=== PATIENT | male | born 1980 | race Caucasian/White ===

== ENCOUNTER 2022-03-03 18:48 | Emergency (ER) | payer OTHER, SELFPAY ==
--- NOTE | 2022-03-03 18:54 | ED.WOUNDLAC ---
HPI - Wound/Laceration General Chief Complaint: Wound/Laceration Stated Complaint: nail infected on finger Time Seen by Provider: 03/03/22 19:01 Source: patient and RN notes reviewed Mode of arrival: ambulatory Limitations: no limitations History of Present Illness HPI narrative: 41-year-old male presents with concern for infected finger. Reports the second digit of his left hand near the nailbed is red, swollen, tender. He reports he noticed symptoms starting 1 week ago but worsened today. He denies fever, body aches, chills, sweats. Denies drainage from the area. Related Data Allergies Allergy/AdvReac Type Severity Reaction Status Date / Time No Known Allergies Allergy Verified 03/03/22 19:03 Review of Systems Review of Systems: CONSTITUTIONAL: Denies malaise, chills, sweats, or fever. SKIN: Reports redness, swelling, tenderness near the nailbed of the second digit of the left hand MUSCULOSKELETAL: Denies muscle skeletal pain NEUROLOGIC: Denies numbness, weakness All systems reviewed & are unremarkable except as noted in HPI and below PMFSH Past Medical History Medical History (Updated 03/03/22 @ 19:10 by Amalia Patel NP) Hip pain Family History Family History (Updated 07/10/20 @ 15:39 by Toma Giordano CMA) Father Diabetes mellitus Other Pancreatic cancer Social History Social History (Updated 07/10/20 @ 15:39 by Toma Giordano CMA) Smoking status: Former smoker Smoking end date: 11/21/15 Alcohol intake: current Alcohol use details: occasional Comments At time of signature, agree with nursing past medical, surgical, social and family history. There is no relevant family history pertinent to the presenting complaint Exam Narrative: GENERAL: Well-appearing, well-nourished, and in no acute distress. HEAD: Normocephalic EYES: PERRLA, conjunctivae clear ENT: Mucous membranes moist. NECK: Supple. No lymphadenopathy CHEST: Clear to auscultation. No respiratory distress. HEART: Regular rate and rhythm. SKIN: Warm, dry. Erythema, mild edema with small amount of fluctuation noted to the lateral edge of the nailbed of the second digit of the left hand consistent with paronychia NEURO: Alert and oriented x3. PSYCH: Normal mood and affect Course Course Emergency Course: Patient is aware of diagnosis, understands and agrees to treatment plan. Anticipatory guidance given. Patient agrees to follow-up as directed and is aware of reasons to seek care at the emergency department. Portions of this record may have been created with voice recognition software Level of Care: Express Care Visit Vital Signs Vital signs: Reviewed. Procedures Abscess I/D hand: Date of Incision: 03/03/22 Side (if applicable): left Local Anesthetic: none (ice) Technique: needle aspiration Amount of fluid expressed (mL): 1 Irrigation: No Packing used?: none I&D Results: Pus MDM - Wound/Laceration MDM Narrative Medical decision making narrative: Exam findings show no acute concerns or changes; patient is non-toxic appearing and is in no distress. Patient is appropriate for outpatient treatment and follow-up. Differential Diagnosis Differential diagnosis: Likely laceration, abrasion and avulsion of skin Critical Care Time Critical Care Time Critical Care Time: No Discharge Plan Discharge Clinical Impression: Paronychia of finger Qualifiers: Laterality: left Qualified Code(s): L03.012 - Cellulitis of left finger Patient Disposition: Home, Self-Care Condition: Stable Instructions: Antibiotic Form, Paronychia (ED) Additional Instructions: Soak your nail: Soak your nail in a mixture of equal parts vinegar and water 3 or 4 times each day. This will help decrease inflammation. Apply a warm compress: Soak a washcloth in warm water and place it on your nail. This will help decrease inflammation. Elevate: Raise your nail above the level of your heart
[2022-03-03 18:55] VITALS: BP 133/81; PULSE 85; RESP 14; TEMP 37.3; O2SAT 99
[2022-03-03 19:04] VITALS: BP 133/81; PULSE 85; RESP 14; TEMP 37.3; O2SAT 99
== END 2022-03-03 19:12 | disposition home or self-care (01) ==
PROVIDERS: Emergency Provider Nurse Practitioner; PCP Internal Medicine
DX: L03.012 Cellulitis of left finger (principal); Z87.891 Personal history of nicotine dependence
CPT/HCPCS: 10160; 99213; G0463

== ENCOUNTER 2022-06-12 12:49 | Emergency (ER) | payer OTHER, SELFPAY ==
[2022-06-12 12:54] VITALS: BP 150/96; PULSE 100; RESP 20; TEMP 36.7; O2SAT 99
--- NOTE | 2022-06-12 13:08 | ED.GENADULT ---
HPI - General Adult General Chief complaint: Extremity Injury, Lower Stated complaint: right foot injury Source: patient Mode of arrival: ambulatory Limitations: no limitations History of Present Illness HPI narrative: Patient presents for evaluation of pain in the right Achilles tendon for the last 5 days. He indicates he was on a trip at the [employer] and went running to catch up to the group he was with. He noted pain in Achilles which has been constant since that time. He rates pain 2/10 and described as a dull ache movement makes his symptoms worse. He tried taking 400 mg of ibuprofen with some improvement in his symptoms or after. No pain in the calf. No personal or family history of DVT. No prolonged periods of rest. He purchased a velcro ankle splint. Related Data Allergies Allergy/AdvReac Type Severity Reaction Status Date / Time No Known Allergies Allergy Verified 03/03/22 19:03 Review of Systems Review of Systems: CONSTITUTIONAL: Denies fever, chills, or sweats. EYES: Denies visual changes, redness, or discharge. ENT: Denies rhinorrhea, congestion, sore throat, or otalgia. CARDIOVASCULAR: Denies chest pain, palpitations, or edema. RESPIRATORY: Denies cough or dyspnea. GASTROINTESTINAL: Denies abdominal pain, nausea, vomiting, or diarrhea. GENITOURINARY: Denies dysuria or hematuria. SKIN: Denies rash or itching. MUSCULOSKELETAL: Reports pain in the right Achilles tendon. Denies joint pain. Denies calf pain. NEUROLOGIC: Denies headache, numbness, dizziness, or weakness. PSYCHIATRIC: Denies anxiety or depression. [facility] Past Medical History Medical History Hip pain Surgical History Surgical History No pertinent past surgical history Family History Family History Father Diabetes mellitus Other Pancreatic cancer Social History Social History Smoking status: Former smoker Smoking end date: 11/21/15 Alcohol intake: current Alcohol use details: occasional Gender identity (if verbalized by the patient): Male Sexual Orientation (if Verbalized by the Patient): Straight or Heterosexual Spiritual care concerns: No Exam Narrative: GENERAL: Well-appearing, well-nourished, and in no acute distress. HEAD: Normocephalic, atraumatic. EYES: PERRLA and EOMI. ENT: Nares clear, no rhinorrhea or epistaxis. Mucous membranes moist. Oropharynx without tonsillar hypertrophy exudate or other lesions. Bilateral TMs pearly bolanos nonbulging NECK: Supple. No adenopathy or masses. No carotid bruits or JVD CHEST: Clear to auscultation. No respiratory distress. No wheezes rales or rhonchi HEART: Regular rate and rhythm. No murmur heard. Normal peripheral pulses. ABDOMEN: Soft, nontender, nondistended, normal active bowel sounds. EXTREMITIES: Normal range of motion. No edema. There is mild tenderness over the right Achilles tendon. There is no posterior calf tenderness. No cords. Negative Renzo's. Negative Hoffman test. No tenderness over medial or lateral malleolus SKIN: Warm, dry, no rash. NEURO: No focal deficits. Alert and oriented x3. PSYCH: Normal mood and affect. Course Course Emergency Course: This is a 42-year-old male that presented with symptoms which are classic to Achilles tendinitis. I do not believe he has any fracture but did offer him imaging and he agreed that this was probably not necessary. He already has a Velcro ankle splint which she was advised to keep. Advised on supportive footwear. Advised on RICE therapy. Advised on NSAIDs for pain. Patient may increase to 800 mg of ibuprofen 3 times a day, to take with food. He should follow-up outpatient for further evaluation and treatment and return for worsening symptoms. Patient was in agree
== END 2022-06-12 13:12 | disposition home or self-care (01) ==
PROVIDERS: Emergency Provider Nurse Practitioner; PCP Internal Medicine
DX: M76.61 Achilles tendinitis, right leg (principal); Z87.891 Personal history of nicotine dependence
CPT/HCPCS: 99213; G0463

== ENCOUNTER 2025-05-05 11:11 | Emergency (ER) | payer OTHER, SELFPAY ==
[2025-05-05 11:29] VITALS: BP 137/82; PULSE 74; RESP 16; TEMP 36.5; O2SAT 98
--- NOTE | 2025-05-05 11:51 | ED.SKABFB ---
HPI - Skin/Abscess/Foreign Bdy General Chief complaint: Skin/Abscess/Foreign Body Stated complaint: bites Source: patient Mode of arrival: ambulatory Limitations: no limitations History of Present Illness HPI narrative: 45-year-old male presented for complaint of bug bite to the upper arms, onset 5 days ago. Has had no treatment. Endorses the 1 lesion on the right upper arm became more red and increased in size overnight. Endorses mild itching. Denies any pain or drainage to the site. Related Data Allergies Allergy/AdvReac Type Severity Reaction Status Date / Time No Known Allergies Allergy Verified 03/03/22 19:03 Review of Systems Review of Systems: CONSTITUTIONAL: Denies body aches, fever, chills, or sweats. EYES: Denies visual changes, redness, or discharge. ENT: Denies rhinorrhea, congestion CARDIOVASCULAR: Denies chest pain, palpitations, or edema. RESPIRATORY: Denies cough or dyspnea. GASTROINTESTINAL: Denies abdominal pain, nausea, vomiting, or diarrhea. SKIN: per HPI MUSCULOSKELETAL: Denies back pain, joint pain, or myalgia. NEUROLOGIC: Denies headache, numbness, tingling, or weakness. [facility] Past Medical History Medical History Hip pain Surgical History Surgical History No pertinent past surgical history Family History Family History Father Diabetes mellitus Other Pancreatic cancer Social History Social History Smoking status: Former smoker Smoking end date: 11/21/15 Alcohol intake: current Alcohol use details: occasional Gender identity (if verbalized by the patient): Male Sexual Orientation (if Verbalized by the Patient): Straight or Heterosexual Spiritual care concerns: No Comments At time of signature, I have reviewed and agree with nursing past medical, surgical, social and family history unless otherwise noted. Please see nursing chart for further information. There is no relevant family history pertinent to the presenting complaint Exam Narrative: GENERAL: Well-appearing HEAD: Normocephalic, atraumatic. EYES: conjunctivae clear, and EOMI. ENT: Mucous membranes moist. Oropharynx without edema, erythema or lesions. NECK: Supple. No lymphadenopathy CHEST: Clear to auscultation. HEART: Regular rate and rhythm. SKIN: Warm, dry. Right bicep with 1cm raised erythematous round lesion c/w insect bite, surrounding patchy light erythema 3cm diameter. Nontender, no fluctuance, induration or active drainage. Left upper posterior arm with to pinpoint erythematous lesions, nontender no drainage. NEURO: Alert and oriented x3. Course Course Emergency Course: Patient is aware of diagnosis, understands and agrees to treatment plan. Anticipatory guidance given. Patient agrees to follow-up as directed and is aware of reasons to seek care at the emergency department. Portions of this record may have been created with voice recognition software Level of Care: Express Care Visit Vital Signs Vital signs: Vital Signs Temperature 97.7 F 05/05/25 11:29 Pulse Rate 74 05/05/25 11:29 Respiratory Rate 16 05/05/25 11:29 Blood Pressure 137/82 05/05/25 11:29 Pulse Oximetry 98 05/05/25 11:29 Oxygen Delivery Room Air 05/05/25 11:29 Temperature 97.7 F 05/05/25 11:29 Pulse Rate 74 05/05/25 11:29 Respiratory Rate 16 05/05/25 11:29 Blood Pressure 137/82 05/05/25 11:29 Pulse Oximetry 98 05/05/25 11:29 Oxygen Delivery Room Air 05/05/25 11:29 Reviewed MDM - Skin/Abscess/Foreign Bdy MDM Narrative Medical decision making narrative: Discussed physical exam findings. Advised supportive measures and signs/symptoms to go to the ER. Pt is appropriate for outpt treatment and f/u. Instructed patient to go to nearest ER immediately for any worsening symptoms including but not limited to: fever, spreading rash, pain, sore throat, headache, dizziness, chest pain, trouble breathing, or any symptoms concerning to the patient. Differential Diagnosis Differential diagnosis: Likely abscess of skin or subcutaneous tissue, viral exanthem, dermatophytosis, urticaria, herpes zoster, cellulitis, eczema, insect bites, impetigo and contact dermatitis Discharge Plan Discharge Clinical Impression: Insect bites Patient Disposition: Home Condition: Stable Instructions: Antibiotic Form, Insect Bite or Sting (ED) Additional Instructions: Keep the area clean and dry - cleanse with warm water and mild soap and allow to fully dry. Keep it open to air (no bandages) Take antibiotic as directed You can apply Benadryl cream or calamine lotion to reduce itching You can take Benadryl, Claritin or Zyrtec to help with itching Watch for worsening symptoms including pain, redness, swelling, streaking, pus/drainage, fever. Go to the ER with any of these symptoms or concerns. Follow up with primary care provider in 1 week as needed. Patient Language: Belarusian Prescriptions: New cephalexin 500 mg capsule 500 mg PO Q12H 5 Days Qty: 10 0RF Follow-up/Referrals: Everardo Lombardo DO [Primary Care Provider] - Time of Disposition: 11:57
== END 2025-05-05 12:02 | disposition home or self-care (01) ==
PROVIDERS: Emergency Provider Nurse Practitioner Family; PCP Internal Medicine
DX: S40.861A Insect bite (nonvenomous) of right upper arm, initial encounter (principal); S40.862A Insect bite (nonvenomous) of left upper arm, initial encounter; W57.XXXA Bitten or stung by nonvenomous insect and other nonvenomous arthropods, initial encounter; Z87.891 Personal history of nicotine dependence
CPT/HCPCS: 99213; G0463

== ENCOUNTER 2025-10-06 11:54 | Emergency (ER) | payer OTHER, SELFPAY ==
--- NOTE | 2025-10-06 11:58 | ED_ITS ---
HPI - Skin/Abscess/Foreign Bdy General Chief complaint: Skin/Abscess/Foreign Body Stated complaint: insect bites, low grade fever Time Seen by Provider: 10/06/25 12:16 Source: patient, RN notes reviewed and old records reviewed Mode of arrival: ambulatory Limitations: no limitations History of Present Illness HPI narrative: 45-year-old male presents to the [facility] with red raised bumps, concern for low-grade fever. Bumps to his bilateral arms and posterior neck. States that he noticed 1 Tuesday. States that he moved back and leaves in thinks the was spiders in it. Related Data Allergies Allergy/AdvReac Type Severity Reaction Status Date / Time No Known Allergies Allergy Verified 10/06/25 12:03 Review of Systems Review of Systems: All systems reviewed & are unremarkable except as noted in HPI and below Constitutional: Constitutional: Reports no additional constitutional complaints ENT: Reports system reviewed and no additional complaints, except as documented Cardiovascular: Cardiovascular: Reports no additional cardiovascular complaints, Denies chest pain and Denies dyspnea Respiratory: Respiratory: Reports no additional respiratory complaints, Denies chest congestion, Denies cough and Denies dyspnea Musculoskeletal: Musculoskeletal: Reports no additional musculoskeletal complaints Integumentary/Breasts: Skin/Breast: Reports as per HPI [facility] Past Medical History Medical History Hip pain Surgical History Surgical History No pertinent past surgical history Family History Family History Father Diabetes mellitus Other Pancreatic cancer Social History Social History Smoking status: Former smoker Smoking end date: 11/21/15 Alcohol intake: current Alcohol use details: occasional Gender identity (if verbalized by the patient): Male Sexual Orientation (if Verbalized by the Patient): Straight or Heterosexual Spiritual care concerns: No Comments At the time of my signature, I reviewed and agree with the nursing past medical, surgical, social, and family history. There is no relevant family history pertinent to the patient complaint. Exam Const: General: cooperative, healthy appearing, comfortable, no acute distress, well developed, alert and well nourished Nutritional Appearance: well nourished Orientation/consciousness: patient oriented x3 Limitations: no limitations HENMT: Head: normal to inspection Mouth: Yes Normal oral and palatal mucosa present, Yes lip normal, Yes tongue normal and Yes moist mucous membranes abnormal Eyes: General: appearance normal, both eyes and all related structures Alignment and Position: alignment normal Neck: Neck: normal visual inspection, full ROM, no lymphadenopathy and no meningeal signs Chest: Chest palpation & inspection: normal inspection of the chest Resp: Effort & Inspection: normal respiratory effort and able to speak in complete sentences Auscultation: clear to auscultation bilaterally, no crackles, no rales, no rhonchi and no wheezes Cardio: Rate: regular rate Skin: General skin exam: normal color and no rashes or lesions noted Other: red raised spots bilateral arms of posterior neck. No cellulitic changes. very itchy. Neuro: General: patient oriented x3, gait normal, moves all extremities and no meningeal signs Cognition (Neuro): normal cognition Speech: normal speech Gait exam (Neuro): Normal gait present Extrem: General: normal to inspection, full ROM, capillary refill normal and normal gait Psych: Appearance: grossly normal and well kempt Mental Status: mental status grossly normal Speech and movement: Normal speech and movement present and Clear speech present Affect: normal affect Attitude: cooperative Course Course Level of Care: Express Care Visit Vital Signs Vital signs: Vital Signs Temperature 98.6 F 10/06/25 12:04 Pulse Rate 104 H 10/06/25 12:04 Respiratory Rate 20 10/06/25 12:04 Blood Pressure 148/89 H 10/06/25 12:04 Pulse Oximetry 99 10/06/25 12:04 Oxygen Delivery Room Air 10/06/25 12:04 Temperature 98.6 F 10/06/25 12:04 Pulse Rate 104 H 10/06/25 12:04 Respiratory Rate 20 10/06/25 12:04 Blood Pressure 148/89 H 10/06/25 12:04 Pulse Oximetry 99 10/06/25 12:04 Oxygen Delivery Room Air 10/06/25 12:04 Reviewed MDM - Skin/Abscess/Foreign Bdy MDM Narrative Medical decision making narrative: Patient with multiple red raised bumps bilateral arms posterior neck states it started Tuesday, 2 days ago. Has been trying [id number] products, after bite cream. Patient describes it as being very itchy. Patient is nontoxic, pulses L slightly elevated, blood pressure slightly elevated. Bumps most consistent with probable insect bites, will cover with anti-itch cream or steroid cream as well as prophylactic antibiotics due to patient's concern cellulitis that he has had in past. Patient is appropriate for outpatient treatment with close follow-up Discharge instructions reviewed with patient, as well as provided in writing per nursing staff. The instructions also include specific and strict return/GO TO THE ER as well as f/u information. All questions have been answered, and the patient deny any further questions with discharge and discharge plan. Some parts of this dictation were generated by voice recognition software and may contain typographical and/or grammatical inaccuracies. Differential Diagnosis Differential diagnosis: Likely abscess of skin or subcutaneous tissue, urticaria, cellulitis, insect bites, impetigo and contact dermatitis Critical Care Time Critical Care Time Critical Care Time: No Discharge Plan Discharge Clinical Impression: Insect bites Qualifiers: Encounter type: initial encounter Site of insect bite: unspecified site Qualified Code(s): W57.XXXA - Bitten or stung by nonvenomous insect and other nonvenomous arthropods, initial encounter Patient Disposition: Home Condition: Stable Instructions: Antibiotic Form, Insect Bite or Sting (ED) Additional Instructions: The most important part of your care is follow up with Primary care provider. Today your blood pressure was 148/89 Take Zyrtec every day Take Pepcid 20mg daily for 7 days Avoid hot showers, Take cool showers. Hot showers will make rashes worse Apply cool compresses every 2-3 hours for 15 minutes wash area twice daily with warm soapy water, pat dry. Go to the ER for new or worsening symptoms such as shortness of breath. Patient Language: Greek Prescriptions: New triamcinolone acetonide 0.1 % cream 1 applic topical TID Qty: 30 0RF cephalexin 500 mg capsule 500 mg PO Q12H Qty: 14 0RF Follow-up/Referrals: Everardo Lombardo DO [Primary Care Provider, Internal Medicine] - 2 Weeks Time of Disposition: 12:31
[2025-10-06 12:04] VITALS: BP 148/89; PULSE 104; RESP 20; TEMP 37; O2SAT 99
== END 2025-10-06 12:36 | disposition home or self-care (01) ==
PROVIDERS: Emergency Provider Nurse Practitioner; PCP Internal Medicine
DX: S10.96XA Insect bite of unspecified part of neck, initial encounter (principal); S40.862A Insect bite (nonvenomous) of left upper arm, initial encounter; S40.861A Insect bite (nonvenomous) of right upper arm, initial encounter; W57.XXXA Bitten or stung by nonvenomous insect and other nonvenomous arthropods, initial encounter; Z87.891 Personal history of nicotine dependence
CPT/HCPCS: 99213; G0463